=== PATIENT | female | born 2000 | race Caucasian/White ===

== ENCOUNTER 2020-02-01 14:29 | Emergency (ER) | payer SELFPAY ==
[~2020-02-01] VITALS: Ht 167.6 cm; Wt 90.7 kg
[2020-02-01 14:32] VITALS: Ht 167.6 cm; Wt 90.7 kg
[2020-02-01 16:37] VITALS: BP 111/69
== END 2020-02-01 16:37 | disposition home or self-care (01) ==
LOC: ED 14:29
DX: U07.1 COVID-19 (principal)
CPT/HCPCS: U0003